=== PATIENT | female | born 1970 | race Caucasian/White ===

== ENCOUNTER 2018-10-30 12:43 | Emergency (ER) | payer MEDICAID, MEDICARE ==
[~2018-10-30] VITALS: Ht 162.6 cm; Wt 81.8 kg
[~2018-10-30 12:43] MED LIST: DIPH25 PO; LURA80 PO
[2018-10-30] MEDS ORDERED: VITA100T5 PO (14:00)
[2018-10-30] MEDS ORDERED: IBUP-2070 PO (14:00)
[2018-10-30] MEDS ORDERED: QUET300T2 PO (14:00)
[2018-10-30] MEDS ORDERED: ARIP2 IM (14:00)
[2018-10-30] MEDS ORDERED: DIVA250T45 PO (14:00)
[2018-10-30] MEDS ORDERED: CETI10TA59 PO (14:00)
[2018-10-30] MEDS ORDERED: VITAD1000 PO (14:00)
[2018-10-30 15:12] LABS: EOSINOPHILS % (AUTO) 1.4 % (1.0-6.0); HEMATOCRIT 42.5 % (36-46); HEMOGLOBIN 13.6 g/dL (12.0-16.0); LYMPHOCYTES % (AUTO) 21.5 % (22.0-44.0); MEAN CORPUSCULAR HEMOGLOBIN 29.3 pg (26.0-34.0); MEAN CORPUSCULAR HGB CONC 32.1 G/dL (31.0-37.0); MEAN CORPUSCULAR VOLUME 91 fL (80-100); MONOCYTES # (AUTO) 0.4 K/uL (0.1-1.0); MONOCYTES % (AUTO) 8.6 % (2.0-9.0); NEUTROPHILS # (AUTO) 3.2 K/uL (1.8-7.7); NEUTROPHILS % (AUTO) 67.5 % (40.0-70.0); PLATELET COUNT (AUTO) 199 K/uL (150-450); RED BLOOD CELL COUNT(AUTO) 4.64 MIL/uL (4.00-5.20); RED CELL DISTRIBUTION WIDTH 13.5 % (11.5-14.5)
[2018-10-30 15:19] LABS: CALCIUM, TOTAL 9.5 mg/dL (8.8-10.5); CREATININE 1.34 mg/dL (0.60-1.30); POTASSIUM 4.1 mmol/L (3.5-5.1)
[2018-10-30 15:44] LABS: ALBUMIN 3.1 g/dL (3.4-5.0); BILIRUBIN,TOTAL 0.5 mg/dL (0.1-1.0); TOTAL PROTEIN, SERUM 7.2 g/dL (6.4-8.2)
[2018-10-30 16:05] LABS: APPEARANCE,URINE CLOUDY (CLEAR); BILIRUBIN,URINE PRELIM. POSITIVE (NEGATIVE); GLUCOSE, URINE (UA) NEGATIVE (NEGATIVE); KETONES,URINE 40 mg/dL (NEGATIVE); LEUKOCYTE ESTERASE ,URINE NEGATIVE (NEGATIVE); NITRATE,URINE NEGATIVE (NEGATIVE); OCCULT BLOOD,URINE NEGATIVE (NEGATIVE); PROTEIN,URINE NEGATIVE (NEGATIVE)
[2018-10-30 16:08] LABS: AMPHET/METH SCREEN,URINE NEGATIVE (NEGATIVE); BARBITURATE SCREEN, URINE NEGATIVE (NEGATIVE); BENZODIAZEPINES SCREEN,URINE NEGATIVE (NEGATIVE); CANNABINOID SCREEN,URINE NEGATIVE (NEGATIVE); COCAINE SCREEN,URINE NEGATIVE (NEGATIVE); METHADONE SCREEN, URINE NEGATIVE (NEGATIVE); OPIATE SCREEN,URINE NEGATIVE (NEGATIVE)
[2018-10-30 16:28] LABS: PHENCYCLIDINE SCREEN,URINE NEGATIVE (NEGATIVE)
[2018-10-30 16:34] LABS: BACTERIA,URINE Few /HPF (None Seen); RBC,URINE None Seen /HPF (0-2); WBC,URINE 0-2 /HPF (0-5)
[2018-10-30 16:35] LABS: SQUAMOUS EPITHELIAL CELL,UR Many /LPF (None Seen)
[2018-10-30] MEDS ORDERED: SODIUM CHLORIDE 0.9% 100 ML ONE (16:36)
[2018-10-30] MEDS ORDERED: IOVERSOL 350 MG/ML 150 ML VIAL ONE (16:36)
[2018-10-30] MEDS ORDERED: AZITHROMYCIN 250 MG in SODIUM CHLORIDE 0.9% 150 ML IV ONE (21:15)
[2018-10-30] MEDS ORDERED: CefTRIAXone 1 GM/DEXTROSE 50 ML IV ONE (21:15)
[2018-10-30 21:30] VITALS: BP 140/80
== END 2018-10-30 21:30 | disposition home or self-care (01) ==
LOC: EMS 12:44
DX: G24.01 Drug induced subacute dyskinesia (principal); R42 Dizziness and giddiness; T43.595A Adverse effect of other antipsychotics and neuroleptics, initial encounter; F31.9 Bipolar disorder, unspecified; E03.9 Hypothyroidism, unspecified; Z88.8 Allergy status to other drugs, medicaments and biological substances; Z79.899 Other long term (current) drug therapy; Y92.89 Other specified places as the place of occurrence of the external cause
CPT/HCPCS: 36415; 70496; 70498; 71045; 80053; 80307; 81001; 82550; 84484; 85025; 93005; 99285; J7050; Q9967; 51702; J0456

== ENCOUNTER 2021-03-15 18:58 | Emergency (ER) | payer MEDICARE, OTHER ==
[~2021-03-15] VITALS: Ht 162.6 cm; Wt 64.1 kg
[~2021-03-15 18:58] MED LIST changes: +ARIP2TAB27 IM; +CETI-450 PO; +CHOL100018 PO; -DIPH25 PO; +DIVA-85 PO; +IBUP-2070 PO; -LURA80 PO; +QUET300T2 PO; +VITA100T5 PO
[2021-03-15] MEDS ORDERED: DiphenhydrAMINE HCL 50 MG/ML VIAL IVP ONE (20:00)
[2021-03-15 22:00] VITALS: BP 132/85
== END 2021-03-15 22:05 | disposition home or self-care (01) ==
LOC: EMS 19:00
DX: G25.89 Other specified extrapyramidal and movement disorders (principal); E03.9 Hypothyroidism, unspecified; F31.9 Bipolar disorder, unspecified; Z79.899 Other long term (current) drug therapy; Z88.8 Allergy status to other drugs, medicaments and biological substances
CPT/HCPCS: 96374; 99283; J1200

== ENCOUNTER 2022-08-13 13:54 | Emergency (ER) | payer MEDICARE, OTHER ==
[~2022-08-13] VITALS: Ht 162.6 cm; Wt 56.8 kg
[~2022-08-13 13:54] MED LIST changes: +IBUP-1492 PO; -IBUP-2070 PO
[2022-08-13 14:58] LABS: BASOPHILS % (AUTO) 0.9 % (0.0-2.0); EOSINOPHILS % (AUTO) 4.9 % (1.0-6.0); HEMATOCRIT 40.5 % (36-46); HEMOGLOBIN 13.3 g/dL (12.0-16.0); LYMPHOCYTES # (AUTO) 1.5 K/uL (1.0-4.8); LYMPHOCYTES % (AUTO) 44.3 % (22.0-44.0); MEAN CORPUSCULAR HEMOGLOBIN 28.3 pg (26.0-34.0); MEAN CORPUSCULAR HGB CONC 32.8 G/dL (31.0-37.0); MEAN CORPUSCULAR VOLUME 86 fL (80-100); MONOCYTES # (AUTO) 0.4 K/uL (0.1-1.0); MONOCYTES % (AUTO) 10.3 % (2.0-9.0); NEUTROPHILS # (AUTO) 1.4 K/uL (1.8-7.7); NEUTROPHILS % (AUTO) 39.6 % (40.0-70.0); PLATELET COUNT (AUTO) 278 K/uL (150-450); RED BLOOD CELL COUNT(AUTO) 4.69 MIL/uL (4.00-5.20); RED CELL DISTRIBUTION WIDTH 13.5 % (11.5-14.5)
[2022-08-13 15:20] LABS: ANION GAP 9 mmol/L (8-16); CARBON DIOXIDE 26 mmol/L (22-29); CHLORIDE 104 mmol/L (98-107); GLUCOSE,RANDOM 120 mg/dL (70-110); POTASSIUM 3.5 mmol/L (3.5-5.1); SODIUM SERUM 139 mmol/L (136-145); UREA NITROGEN, BLOOD 10 mg/dL (7-18)
[2022-08-13 15:21] LABS: CALCIUM, TOTAL 9.2 mg/dL (8.8-10.5); CREATININE 0.95 mg/dL (0.60-1.30); GLOMERULAR FILTR. RATE CALC > 60 mL/min (>60)
[2022-08-13 15:25] LABS: ALANINE AMINOTRANSFERASE 16 U/L (12-78); ALBUMIN 3.6 g/dL (3.4-5.0); ALKALINE PHOSPHATASE 75 U/L (46-116); ASPARTATE AMINOTRANSFERASE 15 U/L (15-37); BILIRUBIN,TOTAL 0.1 mg/dL (0.1-1.0); TOTAL PROTEIN, SERUM 7.1 g/dL (6.4-8.2)
[2022-08-13 15:26] LABS: AMPHET/METH SCREEN,URINE NEGATIVE (NEGATIVE); BARBITURATE SCREEN, URINE NEGATIVE (NEGATIVE); BENZODIAZEPINES SCREEN,URINE NEGATIVE (NEGATIVE); CANNABINOID SCREEN,URINE NEGATIVE (NEGATIVE); COCAINE SCREEN,URINE NEGATIVE (NEGATIVE); METHADONE SCREEN, URINE NEGATIVE (NEGATIVE); OPIATE SCREEN,URINE NEGATIVE (NEGATIVE); PHENCYCLIDINE SCREEN,URINE NEGATIVE (NEGATIVE)
[2022-08-13 16:13] VITALS: BP 138/94
== END 2022-08-13 16:22 | disposition home or self-care (01) ==
LOC: EMS 14:15
DX: G10 Huntington's disease (principal); F31.9 Bipolar disorder, unspecified
CPT/HCPCS: 99283; 80053; 84703; 85025; 36415; 80307 ×2; G0480

== ENCOUNTER 2023-09-25 11:33 | Inpatient (IN) | payer MEDICARE, MEDICAID ==
[~2023-09-25] VITALS: Ht 162.6 cm; Wt 70.0 kg
[2023-09-25] MEDS ORDERED: DiphenhydrAMINE HCL 50 MG/ML VIAL ONE (11:45)
[2023-09-25] MEDS ORDERED: LORazepam 2 MG/ML VIAL ONE (11:45)
[2023-09-25] MEDS ORDERED: HALOPERIDOL LACTATE 5 MG/ML VIAL ONE (11:45)
[2023-09-25] MEDS: DiphenhydrAMINE HCL 50 MG/ML VIAL IM ONE (11:49)
[2023-09-25] MEDS: LORazepam 2 MG/ML VIAL IM ONE (11:49)
[2023-09-25] MEDS: HALOPERIDOL LACTATE 5 MG/ML VIAL IM ONE (11:50)
[2023-09-25] MEDS ORDERED: RISP2TAB45 PO (11:57)
[2023-09-25] MEDS ORDERED: CLON0.252 PO (11:57)
[2023-09-25] MEDS ORDERED: DEUT9TAB PO (11:57)
[2023-09-25 12:17] LABS: ALCOHOL, URINE DRUG SCREEN NEGATIVE (NEGATIVE); AMPHET/METH SCREEN,URINE NEGATIVE (NEGATIVE); BARBITURATE SCREEN, URINE NEGATIVE (NEGATIVE); BENZODIAZEPINES SCREEN,URINE NEGATIVE (NEGATIVE); CANNABINOID SCREEN,URINE NEGATIVE (NEGATIVE); COCAINE SCREEN,URINE NEGATIVE (NEGATIVE); METHADONE SCREEN, URINE NEGATIVE (NEGATIVE); OPIATE SCREEN,URINE NEGATIVE (NEGATIVE); PHENCYCLIDINE SCREEN,URINE NEGATIVE (NEGATIVE)
[2023-09-25 12:33] LABS: PH,URINE DRUG SCREEN 5.5 (5.0-8.0)
[2023-09-25 13:21] LABS: BASOPHILS % (AUTO) 0.8 % (0.0-2.0); EOSINOPHILS % (AUTO) 0.7 % (1.0-6.0); HEMATOCRIT 39.3 % (36-46); HEMOGLOBIN 12.6 g/dL (12.0-16.0); LYMPHOCYTES # (AUTO) 0.8 K/uL (1.0-4.8); LYMPHOCYTES % (AUTO) 18.4 % (22.0-44.0); MEAN CORPUSCULAR HEMOGLOBIN 27.4 pg (26.0-34.0); MEAN CORPUSCULAR HGB CONC 32.2 G/dL (31.0-37.0); MEAN CORPUSCULAR VOLUME 85 fL (80-100); MONOCYTES # (AUTO) 0.4 K/uL (0.1-1.0); NEUTROPHILS # (AUTO) 3.2 K/uL (1.8-7.7); NEUTROPHILS % (AUTO) 72.1 % (40.0-70.0); PLATELET COUNT (AUTO) 326 K/uL (150-450); RED BLOOD CELL COUNT(AUTO) 4.62 MIL/uL (4.00-5.20); RED CELL DISTRIBUTION WIDTH 14.3 % (11.5-14.5); WHITE BLOOD COUNT (AUTO) 4.4 K/uL (4.5-11.0)
[2023-09-25 13:30] LABS: ANION GAP 9 mmol/L (8-16); CALCIUM, TOTAL 9.3 mg/dL (8.8-10.5); CARBON DIOXIDE 28 mmol/L (22-29); CHLORIDE 104 mmol/L (98-107); CREATININE 0.83 mg/dL (0.60-1.30); GLOMERULAR FILTR. RATE CALC > 60 mL/min (>60); GLUCOSE,RANDOM 103 mg/dL (70-110); POTASSIUM 3.5 mmol/L (3.5-5.1); SODIUM SERUM 140 mmol/L (136-145); UREA NITROGEN, BLOOD 7 mg/dL (7-18)
[2023-09-25 13:42] LABS: ALCOHOL, BLOOD (SERUM) < 3 mg/dL (0-10)
[2023-09-25 13:52] LABS: COVID AG,FIA SOURCE NASAL SWAB
[2023-09-25 14:11] LABS: SARS-COV2 (COVID) ANTIGEN,FIA Negative (Negative)
[2023-09-25 21:24] VITALS: BP 130/76; PULSE 78; RESP 18; TEMP 98.9
[2023-09-26 08:07] LABS: FREE T4 (FREE THYROXINE) 0.85 ng/dL (0.76-1.46); THYROID STIMULATING HORMONE 1.75 uIU/mL (0.36-3.74)
[2023-09-26] MEDS: QUEtiapine FUMARATE 200 MG TABLET PO SCH (10:13)
[2023-09-26 10:29] VITALS: BP 113/92; PULSE 76; RESP 18; TEMP 98.6
[2023-09-26] MEDS ORDERED: DEUT9TAB PO (11:03)
[2023-09-26] MEDS ORDERED: CloNIDine HCL 0.1 MG TABLET PO PRN (12:15)
[2023-09-26] MEDS ORDERED: PETROLATUM,WHITE 28 GM JELLY TP PRN (12:15)
[2023-09-26] MEDS ORDERED: ONDANSETRON HCL 4 MG TABLET PO PRN (12:15)
[2023-09-26] MEDS ORDERED: MAGNESIUM HYDROXIDE SUSPENSION 30 ML UDCUP PO PRN (12:15)
[2023-09-26] MEDS ORDERED: DOCUSATE SODIUM 100 MG CAPSULE PO PRN (12:15)
[2023-09-26] MEDS ORDERED: NICOTINE 14 MG/24 HOUR PATCH TD PRN (12:15)
[2023-09-26] MEDS ORDERED: GuaiFENesin/D-METHORPHAN [SUGAR-FREE] 200-20MG/10 ML SYRUP UDCUP PO PRN (12:15)
[2023-09-26] MEDS ORDERED: ALBUTEROL SULFATE HFA 90 MCG/PUFF 8 GM INHALER IH PRN (12:15)
[2023-09-26] MEDS ORDERED: LOPERAMIDE HCL 2 MG CAPSULE PO PRN (12:15)
[2023-09-26] MEDS ORDERED: IBUPROFEN 400 MG TABLET PO PRN (12:15)
[2023-09-26] MEDS ORDERED: MAG HYDROX/ALUMINUM HYD/SIMETH ES 30 ML SUSPENSION UDCUP PO PRN (12:15)
[2023-09-26] MEDS ORDERED: ACETAMINOPHEN 325 MG TABLET PO PRN (12:15)
[2023-09-26 20:05] VITALS: BP 124/74; PULSE 81; RESP 18; TEMP 97.6
[2023-09-27 09:30] LABS: HEMOGLOBIN A1C 5.6 % (3.8-5.6)
[2023-09-27 09:39] LABS: CHOL/HDL RATIO 2.1 (3.9-5.7); FREE T4 (FREE THYROXINE) 0.83 ng/dL (0.76-1.46); THYROID STIMULATING HORMONE 0.73 uIU/mL (0.36-3.74)
[2023-09-27 10:30] VITALS: BP 132/82; PULSE 97; RESP 17; TEMP 97
[2023-09-27 20:41] VITALS: RESP 16
[2023-09-27] MEDS: ZOLPIDEM TARTRATE 10 MG TABLET PO PRN (23:39)
[2023-09-27] MEDS: LORazepam 2 MG TABLET PO PRN (23:59)
[2023-09-28 15:20] VITALS: BP 116/77; PULSE 91; RESP 18; TEMP 96.9
[2023-09-28 15:55] VITALS: BP 116/77; PULSE 91; RESP 18; TEMP 96.9; O2SAT 97
[2023-09-28 16:00] VITALS: BP 129/76; PULSE 99; RESP 20
[2023-09-28] MEDS: HALOPERIDOL 5 MG TABLET PO PRN (16:38)
[2023-09-28 22:18] VITALS: BP 117/70; PULSE 75; RESP 18; TEMP 98; O2SAT 96
[2023-09-29 08:22] VITALS: BP 127/85; PULSE 96; RESP 16; TEMP 97.5; O2SAT 99
[2023-09-29 23:59] VITALS: BP 114/80; PULSE 78; RESP 16; TEMP 97.7; O2SAT 98
[2023-09-30 09:18] VITALS: BP 126/87; PULSE 96; RESP 18; TEMP 96.8; O2SAT 100
== END 2023-09-30 19:07 | DRG 885 ==
LOC: EMS 11:33 → B3A 16:23
PROVIDERS: ADMIT Psychiatry & Neurology Child & Adolescent Psychiatry; ATTEND Psychiatry & Neurology Child & Adolescent Psychiatry
PROC: GZHZZZZ Group Psychotherapy (ICD-10-PCS; principal; 2023-09-26)
PROC: GZ52ZZZ Individual Psychotherapy, Cognitive (ICD-10-PCS; 2023-09-29)
DX: F31.64 Bipolar disorder, current episode mixed, severe, with psychotic features (principal); G10 Huntington's disease; G47.00 Insomnia, unspecified; Z20.822 Contact with and (suspected) exposure to COVID-19; F41.9 Anxiety disorder, unspecified; D72.819 Decreased white blood cell count, unspecified; E73.9 Lactose intolerance, unspecified; G20.A1 Parkinson's disease without dyskinesia, without mention of fluctuations; Z79.899 Other long term (current) drug therapy
CPT/HCPCS: 80048; 80061; 80307; 83036; 84439; 84443; 84703; 85025; 87081; 87481; G0480; J1200; J1630; J2060

== ENCOUNTER 2023-12-14 22:42 | Inpatient (IN) | payer MEDICARE, MEDICAID ==
[~2023-12-14] VITALS: Ht 157.5 cm; Wt 69.9 kg
[2023-12-15] MEDS: DiphenhydrAMINE HCL 50 MG/ML VIAL IM ONE ×2 (00:05→05:08)
[2023-12-15] MEDS: LORazepam 2 MG/ML VIAL IM ONE ×2 (00:06→05:08)
[2023-12-15] MEDS: HALOPERIDOL LACTATE 5 MG/ML VIAL IM ONE ×2 (00:06→05:09)
[2023-12-15 00:20] LABS: EOSINOPHILS % (AUTO) 1.6 % (1.0-6.0); HEMATOCRIT 39.1 % (36-46); HEMOGLOBIN 12.6 g/dL (12.0-16.0); LYMPHOCYTES # (AUTO) 1.4 K/uL (1.0-4.8); LYMPHOCYTES % (AUTO) 28.2 % (22.0-44.0); MEAN CORPUSCULAR HEMOGLOBIN 27.5 pg (26.0-34.0); MEAN CORPUSCULAR HGB CONC 32.1 G/dL (31.0-37.0); MEAN CORPUSCULAR VOLUME 86 fL (80-100); MONOCYTES # (AUTO) 0.6 K/uL (0.1-1.0); MONOCYTES % (AUTO) 11.1 % (2.0-9.0); NEUTROPHILS # (AUTO) 2.9 K/uL (1.8-7.7); NEUTROPHILS % (AUTO) 58.1 % (40.0-70.0); PLATELET COUNT (AUTO) 358 K/uL (150-450); RED BLOOD CELL COUNT(AUTO) 4.57 MIL/uL (4.00-5.20); RED CELL DISTRIBUTION WIDTH 14.1 % (11.5-14.5); WHITE BLOOD COUNT (AUTO) 5.1 K/uL (4.5-11.0)
[2023-12-15 00:31] LABS: ANION GAP 6 mmol/L (8-16); CARBON DIOXIDE 31 mmol/L (22-29); CHLORIDE 103 mmol/L (98-107); CREATININE 0.91 mg/dL (0.60-1.30); GLOMERULAR FILTR. RATE CALC > 60 mL/min (>60); GLUCOSE,RANDOM 99 mg/dL (70-110); POTASSIUM 4.6 mmol/L (3.5-5.1); SODIUM SERUM 140 mmol/L (136-145); UREA NITROGEN, BLOOD 15 mg/dL (7-18)
[2023-12-15 00:41] LABS: ALCOHOL, BLOOD (SERUM) < 3 mg/dL (0-10)
[2023-12-15 00:41] LABS: COVID AG,FIA SOURCE NASAL SWAB
[2023-12-15 01:01] LABS: SARS-COV2 (COVID) ANTIGEN,FIA Negative (Negative)
[2023-12-15] MEDS ORDERED: HALOPERIDOL 5 MG TABLET PO PRN (01:45)
[2023-12-15 06:30] VITALS: O2SAT 99
[2023-12-15 07:35] VITALS: BP 129/85; PULSE 63; RESP 18; TEMP 98.2; O2SAT 99
[2023-12-15 08:00] VITALS: BP 129/85; PULSE 63; RESP 18; TEMP 98.2; O2SAT 99
[2023-12-15] MEDS ORDERED: QUET-28 PO (09:43)
[2023-12-15] MEDS ORDERED: RISP1TAB48 PO (09:43)
[2023-12-15] MEDS: RisperiDONE 1 MG TABLET PO SCH (09:45)
[2023-12-15] MEDS ORDERED: IBUPROFEN 400 MG TABLET PO PRN (15:15)
[2023-12-15] MEDS ORDERED: GuaiFENesin/D-METHORPHAN [SUGAR-FREE] 200-20MG/10 ML SYRUP UDCUP PO PRN (15:15)
[2023-12-15] MEDS ORDERED: CloNIDine HCL 0.1 MG TABLET PO PRN (15:15)
[2023-12-15] MEDS ORDERED: MAGNESIUM HYDROXIDE SUSPENSION 30 ML UDCUP PO PRN (15:15)
[2023-12-15] MEDS ORDERED: MAG HYDROX/ALUMINUM HYD/SIMETH ES 30 ML SUSPENSION UDCUP PO PRN (15:15)
[2023-12-15] MEDS ORDERED: LOPERAMIDE HCL 2 MG CAPSULE PO PRN (15:15)
[2023-12-15] MEDS ORDERED: PETROLATUM,WHITE 28 GM JELLY TP PRN (15:15)
[2023-12-15] MEDS ORDERED: NICOTINE 14 MG/24 HOUR PATCH TD PRN (15:15)
[2023-12-15] MEDS ORDERED: ACETAMINOPHEN 325 MG TABLET PO PRN (15:15)
[2023-12-15] MEDS ORDERED: ONDANSETRON 4 MG TABLET PO PRN (15:15)
[2023-12-15] MEDS ORDERED: ALBUTEROL SULFATE HFA 90 MCG/PUFF 8 GM INHALER IH PRN (15:15)
[2023-12-15] MEDS ORDERED: DOCUSATE SODIUM 100 MG CAPSULE PO PRN (15:15)
[2023-12-15 20:00] VITALS: RESP 16
[2023-12-15] MEDS: QUEtiapine FUMARATE 200 MG ER TABLET PO SCH (20:14)
[2023-12-16 08:26] VITALS: BP 108/71; PULSE 84; RESP 18; TEMP 97.5; O2SAT 98
[2023-12-16 08:39] LABS: HEMOGLOBIN A1C 5.8 % (3.8-5.6)
[2023-12-16 09:15] LABS: CHOL/HDL RATIO 2.2 (3.9-5.7); THYROID STIMULATING HORMONE 1.09 uIU/mL (0.36-3.74)
[2023-12-16] MEDS: ZOLPIDEM TARTRATE 10 MG TABLET PO PRN (21:03)
[2023-12-16 21:05] VITALS: BP 108/65; PULSE 82; RESP 18; TEMP 97; O2SAT 97
[2023-12-17 08:30] VITALS: BP 108/67; PULSE 73; RESP 17; TEMP 97.1; O2SAT 97
[2023-12-17] MEDS: LORazepam 2 MG TABLET PO PRN (16:42)
[2023-12-17 20:31] VITALS: BP 111/73; PULSE 98; RESP 16; TEMP 98.4; O2SAT 98
[2023-12-18 08:31] VITALS: BP 120/60; PULSE 74; RESP 16; TEMP 97.6; O2SAT 96
[2023-12-18 21:30] VITALS: BP 114/78; PULSE 82; RESP 16; TEMP 98; O2SAT 95
[2023-12-19] MEDS: BACITRACIN 28 GM OINTMENT TP SCH (08:44)
[2023-12-19 09:48] VITALS: BP 119/78; PULSE 100; RESP 17; TEMP 98; O2SAT 98
[2023-12-19] MEDS ORDERED: QUET200T5 PO (10:26)
== END 2023-12-19 13:15 | DRG 885 ==
LOC: EMS 22:42 → B3A 12-15 07:11
PROVIDERS: ADMIT Psychiatry & Neurology Psychiatry; ATTEND Psychiatry & Neurology Psychiatry
PROC: GZHZZZZ Group Psychotherapy (ICD-10-PCS; principal; 2023-12-15)
DX: F31.64 Bipolar disorder, current episode mixed, severe, with psychotic features (principal); G10 Huntington's disease; R45.851 Suicidal ideations; F29 Unspecified psychosis not due to a substance or known physiological condition; G20.A1 Parkinson's disease without dyskinesia, without mention of fluctuations; E73.9 Lactose intolerance, unspecified; Z20.822 Contact with and (suspected) exposure to COVID-19; F41.9 Anxiety disorder, unspecified; G47.00 Insomnia, unspecified; Z79.899 Other long term (current) drug therapy
CPT/HCPCS: 80048; 80061; 83036; 84443; 85025; 87081; 87481; 99285; G0480; J1200; J1630; J2060

== ENCOUNTER 2023-12-28 20:52 | Inpatient (IN) | payer MEDICARE, MEDICAID ==
[~2023-12-28] VITALS: Ht 160 cm; Wt 57.3 kg
[~2023-12-28 20:52] MED LIST changes: -ARIP2TAB27 IM; -CETI-450 PO; -CHOL100018 PO; -DIVA-85 PO; -IBUP-1492 PO; +QUET200T5 PO; -QUET300T2 PO; +RISP1TAB48 PO; -VITA100T5 PO
[2023-12-28 22:10] LABS: BASOPHILS % (AUTO) 1.2 % (0.0-2.0); EOSINOPHILS % (AUTO) 3.4 % (1.0-6.0); HEMATOCRIT 40.8 % (36-46); LYMPHOCYTES # (AUTO) 1.7 K/uL (1.0-4.8); MEAN CORPUSCULAR HEMOGLOBIN 27.3 pg (26.0-34.0); MEAN CORPUSCULAR HGB CONC 31.9 G/dL (31.0-37.0); MEAN CORPUSCULAR VOLUME 86 fL (80-100); MONOCYTES # (AUTO) 0.6 K/uL (0.1-1.0); MONOCYTES % (AUTO) 11.5 % (2.0-9.0); NEUTROPHILS # (AUTO) 2.6 K/uL (1.8-7.7); NEUTROPHILS % (AUTO) 50.9 % (40.0-70.0); PLATELET COUNT (AUTO) 340 K/uL (150-450); RED BLOOD CELL COUNT(AUTO) 4.77 MIL/uL (4.00-5.20); RED CELL DISTRIBUTION WIDTH 14.3 % (11.5-14.5); WHITE BLOOD COUNT (AUTO) 5.1 K/uL (4.5-11.0)
[2023-12-28 22:20] LABS: ANION GAP 8 mmol/L (8-16); CALCIUM, TOTAL 9.1 mg/dL (8.8-10.5); CARBON DIOXIDE 27 mmol/L (22-29); CHLORIDE 105 mmol/L (98-107); CREATININE 0.97 mg/dL (0.60-1.30); GLOMERULAR FILTR. RATE CALC 60 mL/min (>60); GLUCOSE,RANDOM 90 mg/dL (70-110); POTASSIUM 3.7 mmol/L (3.5-5.1); SODIUM SERUM 140 mmol/L (136-145); UREA NITROGEN, BLOOD 12 mg/dL (7-18)
[2023-12-28 22:21] LABS: ALCOHOL, BLOOD (SERUM) < 3 mg/dL (0-10)
[2023-12-28 23:34] LABS: COVID AG,FIA SOURCE NASAL SWAB
[2023-12-28 23:56] LABS: SARS-COV2 (COVID) ANTIGEN,FIA Negative (Negative)
[2023-12-29] MEDS ORDERED: LOPERAMIDE HCL 2 MG CAPSULE PO PRN (10:45)
[2023-12-29] MEDS ORDERED: MAGNESIUM HYDROXIDE SUSPENSION 30 ML UDCUP PO PRN (10:45)
[2023-12-29] MEDS ORDERED: MAG HYDROX/ALUMINUM HYD/SIMETH ES 30 ML SUSPENSION UDCUP PO PRN (10:45)
[2023-12-29] MEDS: HALOPERIDOL LACTATE 5 MG/ML VIAL IM ONE (18:10)
[2023-12-29] MEDS: DiphenhydrAMINE HCL 50 MG/ML VIAL IM ONE (18:10)
[2023-12-29] MEDS: LORazepam 2 MG/ML VIAL IM ONE (18:10)
[2023-12-29 18:57] VITALS: RESP 18
[2023-12-29 20:43] VITALS: BP 137/93; PULSE 100; RESP 18; TEMP 97.3; O2SAT 98
[2023-12-29] MEDS: ZOLPIDEM TARTRATE 10 MG TABLET PO PRN (21:48)
[2023-12-30] MEDS: HALOPERIDOL 5 MG TABLET PO PRN (00:32)
[2023-12-30] MEDS: LORazepam 2 MG TABLET PO PRN (00:32)
[2023-12-30 00:33] VITALS: BP 113/83; PULSE 91; RESP 18; TEMP 97.5; O2SAT 98
[2023-12-30 08:00] VITALS: BP 154/82; PULSE 83; RESP 18; TEMP 96.6; O2SAT 97
[2023-12-30 14:30] VITALS: BP 123/68; PULSE 73
[2023-12-30] MEDS ORDERED: GuaiFENesin/D-METHORPHAN [SUGAR-FREE] 200-20MG/10 ML SYRUP UDCUP PO PRN (16:00)
[2023-12-30] MEDS ORDERED: PETROLATUM,WHITE 28 GM JELLY TP PRN (16:00)
[2023-12-30] MEDS ORDERED: NICOTINE 14 MG/24 HOUR PATCH TD PRN (16:00)
[2023-12-30] MEDS ORDERED: ACETAMINOPHEN 325 MG TABLET PO PRN (16:00)
[2023-12-30] MEDS ORDERED: ALBUTEROL SULFATE HFA 90 MCG/PUFF 8 GM INHALER IH PRN (16:00)
[2023-12-30] MEDS ORDERED: CloNIDine HCL 0.1 MG TABLET PO PRN (16:00)
[2023-12-30] MEDS: RisperiDONE 1 MG TABLET PO SCH (16:20)
[2023-12-30] MEDS: QUEtiapine FUMARATE 200 MG ER TABLET PO SCH (20:34)
[2023-12-31 10:40] VITALS: BP 105/73; PULSE 84; RESP 18; TEMP 97.6; O2SAT 97
[2023-12-31 20:26] VITALS: BP 122/80; PULSE 72; RESP 18; TEMP 97.6; O2SAT 97
[2024-01-01 08:52] VITALS: BP 105/64; PULSE 88; RESP 17; TEMP 97.1; O2SAT 99
[2024-01-01 21:28] VITALS: BP 105/69; PULSE 79; RESP 16; TEMP 96.9; O2SAT 95
[2024-01-02 01:04] VITALS: BP 112/68; PULSE 86; RESP 16; TEMP 97.8; O2SAT 97
[2024-01-02] MEDS: IBUPROFEN 400 MG TABLET PO PRN (01:04)
[2024-01-02 08:31] VITALS: BP 132/79; PULSE 103; RESP 16; TEMP 96.9; O2SAT 96
[2024-01-02 20:00] VITALS: BP 148/86; PULSE 99; RESP 18; TEMP 96.7; O2SAT 99
[2024-01-03 09:14] LABS: HEMOGLOBIN A1C 5.7 % (3.8-5.6)
[2024-01-03 09:25] LABS: CHOL/HDL RATIO 1.8 (3.9-5.7); THYROID STIMULATING HORMONE 1.68 uIU/mL (0.36-3.74)
[2024-01-03 10:40] VITALS: BP 118/78; PULSE 94; RESP 17; TEMP 97.4; O2SAT 96
[2024-01-03 20:48] VITALS: BP 132/79; PULSE 98; RESP 17; TEMP 97.9; O2SAT 96
[2024-01-04 09:44] VITALS: RESP 17
[2024-01-04 20:21] VITALS: BP 148/97; PULSE 71; RESP 17; TEMP 97.8; O2SAT 97
[2024-01-05 08:40] VITALS: BP 101/62; PULSE 73; TEMP 98.1; O2SAT 16
[2024-01-05 21:12] VITALS: BP 138/78; PULSE 97; RESP 18; TEMP 97.8; O2SAT 100
[2024-01-06 16:40] VITALS: BP 135/90; PULSE 82; RESP 18; TEMP 97.4; O2SAT 96
[2024-01-06 20:16] VITALS: BP 105/75; PULSE 91; RESP 18; TEMP 96; O2SAT 98
[2024-01-07 09:04] VITALS: BP 128/96; PULSE 87; RESP 16; TEMP 97
[2024-01-07 20:41] VITALS: BP 118/81; PULSE 94; RESP 15; TEMP 97; O2SAT 97
[2024-01-08 09:44] VITALS: BP 127/91; PULSE 77; RESP 17; TEMP 97.7; O2SAT 97
[2024-01-08 21:01] VITALS: RESP 17
[2024-01-09 01:04] VITALS: BP 122/82; PULSE 85; RESP 18; TEMP 97.6; O2SAT 97
[2024-01-09 08:17] VITALS: BP 103/75; PULSE 88; RESP 18; TEMP 97; O2SAT 98
[2024-01-09 20:00] VITALS: BP 138/80; PULSE 95; RESP 16; TEMP 97.6; O2SAT 98
[2024-01-10 08:09] VITALS: BP 136/71; PULSE 87; RESP 17; TEMP 97.4; O2SAT 96
[2024-01-10 17:43] VITALS: BP 144/90; PULSE 100; RESP 18; TEMP 97.8; O2SAT 95
[2024-01-10 23:56] VITALS: BP 118/76; PULSE 93; RESP 17; TEMP 97.3; O2SAT 97
[2024-01-11 13:16] VITALS: BP 110/76; PULSE 90; RESP 16; TEMP 97.8; O2SAT 98
[2024-01-11 23:44] VITALS: BP 117/78; PULSE 87; RESP 18; TEMP 97.6; O2SAT 98
[2024-01-12] MEDS: MAG HYDROX/ALUMINUM HYD/SIMETH ES 30 ML SUSPENSION UDCUP PO PRN (06:03)
[2024-01-12 08:00] VITALS: BP 127/64; PULSE 94; RESP 16; TEMP 98; O2SAT 96
[2024-01-12 20:46] VITALS: BP 117/72; PULSE 86; RESP 18; TEMP 96.5; O2SAT 98
[2024-01-13 09:02] VITALS: BP 113/71; PULSE 75; RESP 18; TEMP 98; O2SAT 97
[2024-01-13 10:00] VITALS: BP 115/73; PULSE 75; RESP 17; TEMP 97; O2SAT 97
[2024-01-13 20:03] VITALS: BP 105/78; PULSE 102; RESP 18; TEMP 97.3; O2SAT 95
[2024-01-14 09:14] VITALS: BP 98/59; PULSE 81; RESP 13; TEMP 97.6; O2SAT 97
[2024-01-14 21:51] VITALS: BP 101/63; PULSE 98; RESP 18; TEMP 97.3; O2SAT 97
[2024-01-15 11:30] VITALS: BP 116/74; PULSE 90; RESP 16; TEMP 97.8; O2SAT 98
[2024-01-15 21:08] VITALS: BP 106/68; PULSE 80; RESP 16; TEMP 96.3; O2SAT 95
[2024-01-16 08:02] VITALS: BP 110/72; PULSE 85; RESP 16; TEMP 97; O2SAT 97
[2024-01-16] MEDS: DiphenhydrAMINE HCL 50 MG/ML VIAL IM ONE (20:20)
[2024-01-16] MEDS: HALOPERIDOL LACTATE 5 MG/ML VIAL IM ONE (20:20)
[2024-01-16] MEDS: LORazepam 2 MG/ML VIAL IM ONE (20:20)
[2024-01-16 20:39] VITALS: BP 128/77; PULSE 92; RESP 18; TEMP 97.3; O2SAT 97
[2024-01-17 17:23] VITALS: RESP 18
[2024-01-17] MEDS: QUEtiapine FUMARATE 300 MG ER TABLET PO SCH (20:23)
[2024-01-17 20:30] VITALS: BP 111/74; PULSE 89; RESP 18; TEMP 97.4; O2SAT 97
[2024-01-18 08:27] VITALS: BP 125/79; PULSE 65; RESP 18; TEMP 97.9; O2SAT 100
[2024-01-18] MEDS: DOCUSATE SODIUM 100 MG CAPSULE PO PRN (18:54)
[2024-01-18 23:20] VITALS: RESP 18; O2SAT 99
[2024-01-19 08:07] VITALS: BP 99/63; PULSE 67; RESP 16; TEMP 98.1; O2SAT 99
[2024-01-19 20:00] VITALS: BP 110/60; PULSE 81; RESP 18; TEMP 97.6; O2SAT 98
[2024-01-20 09:42] VITALS: BP 116/61; PULSE 63; RESP 17; TEMP 98; O2SAT 97
[2024-01-20] MEDS: ROPINIRole HCL 0.25 MG TABLET PO SCH (15:38)
[2024-01-20 20:33] VITALS: BP 134/88; PULSE 89; RESP 18; TEMP 97.8; O2SAT 98
[2024-01-21 08:26] VITALS: BP 129/66; PULSE 87; RESP 18; TEMP 98; O2SAT 100
[2024-01-21 22:17] VITALS: BP 97/59; PULSE 81; RESP 18; TEMP 97; O2SAT 98
[2024-01-22 08:47] VITALS: BP 124/85; PULSE 99; RESP 17; TEMP 97.3; O2SAT 97
[2024-01-22 20:11] VITALS: BP 116/75; PULSE 83; RESP 18; TEMP 97.6; O2SAT 99
[2024-01-23 10:13] VITALS: BP 123/72; PULSE 80; RESP 16; TEMP 97.6; O2SAT 99
[2024-01-23 20:09] VITALS: BP 100/77; PULSE 86; RESP 18; TEMP 97.4; O2SAT 97
[2024-01-24 08:49] VITALS: BP 110/75; PULSE 83; RESP 18; O2SAT 98
[2024-01-24 20:17] VITALS: BP 112/83; PULSE 78; RESP 16; TEMP 97.6; O2SAT 97
[2024-01-25 08:06] VITALS: BP 121/86; PULSE 89; RESP 18; TEMP 97.7; O2SAT 97
[2024-01-25 20:16] VITALS: BP 110/76; PULSE 73; RESP 19; TEMP 98.1; O2SAT 95
[2024-01-26 09:05] VITALS: BP 117/76; PULSE 76; RESP 18; TEMP 96.6; O2SAT 99
[2024-01-26 20:07] VITALS: BP 135/85; PULSE 86; RESP 18; TEMP 97.5; O2SAT 98
[2024-01-27 08:34] VITALS: BP 126/71; PULSE 88; RESP 18; TEMP 96.8; O2SAT 96
[2024-01-27 22:07] VITALS: BP 112/77; PULSE 71; RESP 18; TEMP 97; O2SAT 96
[2024-01-28 08:23] VITALS: BP 104/70; PULSE 86; RESP 17; TEMP 97.2; O2SAT 97
[2024-01-28] MEDS: MAGNESIUM HYDROXIDE SUSPENSION 30 ML UDCUP PO PRN (12:07)
[2024-01-28 21:07] VITALS: BP 112/60; PULSE 81; RESP 17; TEMP 97.8; O2SAT 96
[2024-01-29 08:15] VITALS: BP 132/77; PULSE 77; RESP 17; TEMP 97.2; O2SAT 97
[2024-01-29 21:47] VITALS: BP 112/77; PULSE 73; RESP 18; TEMP 98.2; O2SAT 98
[2024-01-30 08:15] VITALS: BP 125/83; PULSE 100; RESP 16; TEMP 97.6; O2SAT 96
[2024-01-30 20:39] VITALS: BP 118/67; PULSE 84; RESP 16; TEMP 98.2; O2SAT 98
[2024-01-31 11:06] VITALS: BP 128/72; PULSE 77; RESP 16; TEMP 97.6; O2SAT 99
[2024-01-31 20:25] VITALS: BP 108/70; PULSE 63; RESP 16; TEMP 97.9; O2SAT 96
[2024-02-01 08:25] VITALS: BP 142/92; PULSE 89; RESP 17; TEMP 97.8; O2SAT 97
[2024-02-01 20:55] VITALS: BP 115/70; PULSE 86; RESP 17; TEMP 97.6; O2SAT 100
[2024-02-01 21:31] LABS: GLUCOMETER DEV NAME(LOC) BV2X.3; GLUCOSE,POINT OF CARE 93 MG/DL (70-110)
[2024-02-02 08:14] VITALS: BP 128/96; PULSE 62; RESP 19; TEMP 97.6; O2SAT 95
[2024-02-02 20:35] VITALS: BP 108/64; PULSE 93; RESP 18; TEMP 98.3; O2SAT 98
[2024-02-03 02:23] VITALS: BP 107/75; PULSE 73; TEMP 97.8; O2SAT 100
[2024-02-03 08:00] VITALS: BP 117/78; PULSE 95; RESP 17; TEMP 98.5; O2SAT 95
[2024-02-03] MEDS ORDERED: ChlorproMAZINE HCL 50 MG/2 ML AMP ONE (11:18)
[2024-02-03] MEDS ORDERED: LORazepam 2 MG/ML VIAL ONE (11:18)
[2024-02-03] MEDS: ChlorproMAZINE HCL 50 MG/2 ML AMP IM ONE (13:40)
[2024-02-03] MEDS: LORazepam 2 MG/ML VIAL IM ONE (13:40)
[2024-02-03 20:42] VITALS: BP 133/76; PULSE 83; RESP 20; TEMP 96.2; O2SAT 98
[2024-02-04 08:30] VITALS: BP 126/72; PULSE 99; RESP 20; TEMP 97.7; O2SAT 98
[2024-02-04 23:44] VITALS: RESP 18
[2024-02-05 08:16] VITALS: BP 104/66; PULSE 78; RESP 16; TEMP 97; O2SAT 97
[2024-02-05] MEDS ORDERED: LORazepam 2 MG/ML VIAL ONE (20:16)
[2024-02-05] MEDS: HALOPERIDOL LACTATE 5 MG/ML VIAL IM ONE (20:30)
[2024-02-05] MEDS: LORazepam 2 MG/ML VIAL IM ONE (20:31)
[2024-02-05] MEDS: DiphenhydrAMINE HCL 50 MG/ML VIAL IM ONE (20:31)
[2024-02-05 20:35] VITALS: RESP 18
[2024-02-06 12:36] VITALS: BP 129/86; PULSE 98; RESP 18; TEMP 97.3; O2SAT 97
[2024-02-06 20:54] VITALS: BP 102/66; PULSE 80; RESP 17; TEMP 97; O2SAT 99
[2024-02-07 09:00] VITALS: BP 124/73; PULSE 76; RESP 16; TEMP 97; O2SAT 99
[2024-02-07 14:25] VITALS: RESP 17
[2024-02-07] MEDS: ACETAMINOPHEN 325 MG TABLET PO PRN (14:25)
[2024-02-07 15:25] VITALS: RESP 16
[2024-02-07] MEDS: BACITRACIN 28 GM OINTMENT TP SCH (16:55)
[2024-02-07 20:16] VITALS: BP 111/77; PULSE 108; RESP 17; TEMP 97
[2024-02-07] MEDS: ONDANSETRON 4 MG TABLET PO PRN (20:19)
[2024-02-08 08:29] VITALS: BP 127/88; PULSE 98; RESP 18; TEMP 97.7; O2SAT 99
[2024-02-09 08:17] VITALS: BP 111/87; PULSE 85; RESP 17; TEMP 98.2; O2SAT 97
[2024-02-09 20:23] VITALS: BP 105/66; PULSE 76; RESP 18; TEMP 97.5; O2SAT 96
[2024-02-10] MEDS: HALOPERIDOL LACTATE 5 MG/ML VIAL IM ONE (05:07)
[2024-02-10] MEDS: DiphenhydrAMINE HCL 50 MG/ML VIAL IM ONE (05:08)
[2024-02-10] MEDS: LORazepam 2 MG/ML VIAL IM ONE (05:08)
[2024-02-10 06:46] VITALS: BP 112/79; PULSE 106; RESP 16; TEMP 97.5; O2SAT 100
[2024-02-10 08:15] VITALS: BP 120/85; PULSE 99; RESP 18; TEMP 97.1; O2SAT 97
[2024-02-10 22:05] VITALS: BP 111/60; PULSE 78; RESP 18; TEMP 97.6; O2SAT 98
[2024-02-11 08:21] VITALS: BP 127/81; PULSE 89; RESP 18; TEMP 97.9; O2SAT 100
[2024-02-11 20:39] VITALS: BP 127/81; PULSE 89; RESP 18; TEMP 97.5; O2SAT 100
[2024-02-12 09:05] VITALS: BP 110/67; PULSE 99; RESP 18; TEMP 97.1; O2SAT 100
[2024-02-12 22:13] VITALS: RESP 18
[2024-02-13 09:37] VITALS: BP 121/60; PULSE 90; RESP 18; TEMP 97.9; O2SAT 98
[2024-02-13 21:00] VITALS: RESP 18
[2024-02-14 20:25] VITALS: PULSE 84; RESP 18; TEMP 98
[2024-02-15 04:10] VITALS: RESP 18
[2024-02-15 05:15] VITALS: RESP 16
[2024-02-15 08:01] VITALS: BP 109/73; PULSE 76; RESP 17; TEMP 97.1; O2SAT 98
[2024-02-15 20:20] VITALS: BP 103/62; PULSE 83; RESP 18; TEMP 96.8; O2SAT 100
[2024-02-16 08:36] VITALS: BP 114/70; PULSE 69; RESP 17; TEMP 98.4; O2SAT 97
[2024-02-16 20:31] VITALS: BP 114/72; PULSE 80; RESP 18; TEMP 96.7; O2SAT 97
[2024-02-17 08:33] VITALS: BP 108/63; PULSE 80; RESP 18; TEMP 97.9; O2SAT 100
[2024-02-17 20:20] VITALS: BP 119/71; PULSE 101; RESP 18; TEMP 98; O2SAT 97
[2024-02-18 08:31] VITALS: BP 125/81; PULSE 83; RESP 18; TEMP 98.9; O2SAT 98
[2024-02-18 20:40] VITALS: RESP 18
[2024-02-19 08:26] VITALS: BP 122/82; PULSE 106; RESP 18; TEMP 97.4; O2SAT 98
[2024-02-19] MEDS: LOPERAMIDE HCL 2 MG CAPSULE PO PRN (16:00)
[2024-02-19 20:01] VITALS: BP 130/19; PULSE 95; RESP 18; TEMP 98; O2SAT 99
[2024-02-20 08:11] VITALS: BP 112/81; PULSE 87; RESP 18; TEMP 97.8; O2SAT 95
[2024-02-20 20:44] VITALS: BP 110/74; PULSE 88; RESP 18; TEMP 97.6
[2024-02-20 20:45] VITALS: BP 120/90; PULSE 88; RESP 18; TEMP 97.6; O2SAT 99
[2024-02-21 08:52] VITALS: RESP 18
[2024-02-21 20:52] VITALS: RESP 18; TEMP 97.6
[2024-02-22 17:36] VITALS: BP 105/62; PULSE 71; RESP 18; TEMP 98.4
[2024-02-22 20:06] VITALS: BP 108/66; PULSE 83; RESP 18; TEMP 97.6
[2024-02-23 08:01] VITALS: BP 100/61; PULSE 70; RESP 18; TEMP 97.3; O2SAT 98
[2024-02-23 20:10] VITALS: BP 134/66; PULSE 76; RESP 18; TEMP 97.3; TEMP 97.9; O2SAT 100; O2SAT 96
[2024-02-24 08:05] VITALS: BP 126/89; PULSE 77; RESP 18; TEMP 97.3; O2SAT 100
[2024-02-24] MEDS ORDERED: QUET300T5 PO (14:52)
[2024-02-24] MEDS ORDERED: ROPI0.2535 PO (14:53)
== END 2024-02-24 19:40 | DRG 885 ==
LOC: EMS 20:52 → B2X 12-29 16:03
PROVIDERS: ADMIT Psychiatry & Neurology Psychiatry; ATTEND Psychiatry & Neurology Psychiatry
PROC: GZHZZZZ Group Psychotherapy (ICD-10-PCS; principal; 2023-12-30)
PROC: GZ56ZZZ Individual Psychotherapy, Supportive (ICD-10-PCS; 2023-12-30)
DX: F31.64 Bipolar disorder, current episode mixed, severe, with psychotic features (principal); G10 Huntington's disease; Z59.00 Homelessness unspecified; G47.00 Insomnia, unspecified; Z20.822 Contact with and (suspected) exposure to COVID-19; I10 Essential (primary) hypertension; G20.A1 Parkinson's disease without dyskinesia, without mention of fluctuations; F41.9 Anxiety disorder, unspecified; F94.0 Selective mutism; R13.10 Dysphagia, unspecified; R40.0 Somnolence; Z88.8 Allergy status to other drugs, medicaments and biological substances; S00.81XA Abrasion of other part of head, initial encounter; X58.XXXA Exposure to other specified factors, initial encounter; Y93.89 Activity, other specified; Y92.89 Other specified places as the place of occurrence of the external cause; Y99.8 Other external cause status
CPT/HCPCS: 80048; 80061; 82962; 83036; 84443; 84703; 85025; 87081; 87481; 92610; 97165; 97535; 99285; G0480; J1200; J1630; J2060; J3230; Q0162

== ENCOUNTER 2024-02-07 09:31 | Emergency (ER) | payer MEDICARE, OTHER ==
[~2024-02-07] VITALS: Ht 165.1 cm; Wt 63.6 kg
[2024-02-07] MEDS: BACITRACIN 0.9 GM PACKET OINTMENT TP ONE (09:49)
[2024-02-07 09:58] VITALS: BP 119/83; PULSE 78; RESP 16; TEMP 98.3; O2SAT 98
== END 2024-02-07 13:50 ==
LOC: EMS 09:47
DX: S00.01XA Abrasion of scalp, initial encounter (principal); R45.1 Restlessness and agitation; F31.9 Bipolar disorder, unspecified; G10 Huntington's disease; G20.A1 Parkinson's disease without dyskinesia, without mention of fluctuations; W22.8XXA Striking against or struck by other objects, initial encounter; Y93.89 Activity, other specified; Y92.89 Other specified places as the place of occurrence of the external cause; Y99.8 Other external cause status
CPT/HCPCS: 70450; 99284

== ENCOUNTER 2024-02-08 01:08 | Emergency (ER) | payer MEDICARE, OTHER ==
[~2024-02-08] VITALS: Ht 154.9 cm; Wt 56.8 kg
[2024-02-08 01:18] VITALS: TEMP 98
[2024-02-08] MEDS: ONDANSETRON 4 MG TABLET PO ONE (02:47)
[2024-02-08] MEDS: ACETAMINOPHEN 325 MG TABLET PO ONE (02:47)
[2024-02-08 02:56] LABS: BASOPHILS % (AUTO) 0.8 % (0.0-2.0); EOSINOPHILS % (AUTO) 4.7 % (1.0-6.0); HEMATOCRIT 39.5 % (36-46); HEMOGLOBIN 12.8 g/dL (12.0-16.0); LYMPHOCYTES # (AUTO) 1.5 K/uL (1.0-4.8); MEAN CORPUSCULAR HEMOGLOBIN 27.5 pg (26.0-34.0); MEAN CORPUSCULAR HGB CONC 32.3 G/dL (31.0-37.0); MEAN CORPUSCULAR VOLUME 85 fL (80-100); MONOCYTES # (AUTO) 0.6 K/uL (0.1-1.0); MONOCYTES % (AUTO) 15.3 % (2.0-9.0); NEUTROPHILS # (AUTO) 1.7 K/uL (1.8-7.7); NEUTROPHILS % (AUTO) 42.2 % (40.0-70.0); PLATELET COUNT (AUTO) 314 K/uL (150-450); RED BLOOD CELL COUNT(AUTO) 4.65 MIL/uL (4.00-5.20); RED CELL DISTRIBUTION WIDTH 14.3 % (11.5-14.5); WHITE BLOOD COUNT (AUTO) 4.1 K/uL (4.5-11.0)
[2024-02-08 03:09] LABS: ANION GAP 0 mmol/L (8-16); CALCIUM, TOTAL 8.6 mg/dL (8.8-10.5); CARBON DIOXIDE 32 mmol/L (22-29); CHLORIDE 101 mmol/L (98-107); CREATININE 0.92 mg/dL (0.60-1.30); GLOMERULAR FILTR. RATE CALC > 60 mL/min (>60); GLUCOSE,RANDOM 90 mg/dL (70-110); POTASSIUM 4.2 mmol/L (3.5-5.1); SODIUM SERUM 133 mmol/L (136-145); UREA NITROGEN, BLOOD 17 mg/dL (7-18)
[2024-02-08 03:14] LABS: TROPONIN I-HIGH SENSITIVITY 13 ng/L (<51)
[2024-02-08 03:17] LABS: ALANINE AMINOTRANSFERASE 17 U/L (12-78); ALBUMIN 2.6 g/dL (3.4-5.0); ALKALINE PHOSPHATASE 86 U/L (46-116); ASPARTATE AMINOTRANSFERASE 23 U/L (15-37); BILIRUBIN,TOTAL 0.3 mg/dL (0.1-1.0); LIPASE 65 U/L (16-77); TOTAL PROTEIN, SERUM 6.4 g/dL (6.4-8.2)
[2024-02-08 06:07] VITALS: BP 107/63; PULSE 72; RESP 16; O2SAT 100
== END 2024-02-08 06:10 | disposition admitted as inpatient to this hospital (09) ==
LOC: EMS 01:08
DX: K59.00 Constipation, unspecified (principal); R11.2 Nausea with vomiting, unspecified; G10 Huntington's disease; F31.9 Bipolar disorder, unspecified; G20.A1 Parkinson's disease without dyskinesia, without mention of fluctuations; Z91.011 Allergy to milk products
CPT/HCPCS: 99284; 80048; 80076; 83690; 84484; 85025; 36415; 74018; Q0162

== ENCOUNTER 2024-03-02 02:49 | Emergency (ER) | payer MEDICARE, OTHER ==
[~2024-03-02] VITALS: Ht 167.6 cm; Wt 65.9 kg
[~2024-03-02 02:49] MED LIST changes: -QUET200T5 PO; +QUET300T5 PO; +ROPI0.2535 PO
[2024-03-02 04:03] VITALS: TEMP 98.1
[2024-03-02] MEDS: LORazepam 2 MG/ML VIAL IM ONE (04:47)
[2024-03-02 06:30] VITALS: BP 125/67; PULSE 80; RESP 18; O2SAT 98
[2024-03-02 07:25] LABS: COVID AG,FIA SOURCE NASAL SWAB
[2024-03-02 07:48] LABS: SARS-COV2 (COVID) ANTIGEN,FIA Negative (Negative)
[2024-03-02] MEDS ORDERED: LORazepam 2 MG TABLET PO PRN (08:30)
[2024-03-02] MEDS ORDERED: HALOPERIDOL 5 MG TABLET PO PRN (08:30)
[2024-03-02] MEDS ORDERED: ZOLPIDEM TARTRATE 10 MG TABLET PO PRN (08:30)
[2024-03-02 08:39] LABS: BASOPHILS % (AUTO) 0.6 % (0.0-2.0); EOSINOPHILS % (AUTO) 1.8 % (1.0-6.0); HEMATOCRIT 41.5 % (36-46); HEMOGLOBIN 13.4 g/dL (12.0-16.0); LYMPHOCYTES # (AUTO) 1.4 K/uL (1.0-4.8); LYMPHOCYTES % (AUTO) 22.6 % (22.0-44.0); MEAN CORPUSCULAR HEMOGLOBIN 27.7 pg (26.0-34.0); MEAN CORPUSCULAR HGB CONC 32.2 G/dL (31.0-37.0); MEAN CORPUSCULAR VOLUME 86 fL (80-100); MONOCYTES # (AUTO) 0.6 K/uL (0.1-1.0); NEUTROPHILS # (AUTO) 3.9 K/uL (1.8-7.7); PLATELET COUNT (AUTO) 350 K/uL (150-450); RED BLOOD CELL COUNT(AUTO) 4.82 MIL/uL (4.00-5.20); RED CELL DISTRIBUTION WIDTH 14.2 % (11.5-14.5)
[2024-03-02 08:48] LABS: ANION GAP 5 mmol/L (8-16); CALCIUM, TOTAL 9.6 mg/dL (8.8-10.5); CARBON DIOXIDE 31 mmol/L (22-29); CHLORIDE 107 mmol/L (98-107); CREATININE 0.97 mg/dL (0.60-1.30); GLOMERULAR FILTR. RATE CALC 60 mL/min (>60); GLUCOSE,RANDOM 105 mg/dL (70-110); POTASSIUM 4.2 mmol/L (3.5-5.1); SODIUM SERUM 143 mmol/L (136-145); UREA NITROGEN, BLOOD 17 mg/dL (7-18)
[2024-03-02 09:14] LABS: ALCOHOL, BLOOD (SERUM) < 3 mg/dL (0-10)
== END 2024-03-02 17:32 | disposition home or self-care (01) ==
LOC: EMS 02:49 → CANBEDREQ 16:40 → EMS 17:32
DX: F25.0 Schizoaffective disorder, bipolar type (principal); Z91.011 Allergy to milk products; Z20.822 Contact with and (suspected) exposure to COVID-19
CPT/HCPCS: 99285; 87426; 80048; 85025; 36415; 96372; G0480; J2060

== ENCOUNTER 2024-10-25 13:07 | Emergency (ER) | payer MEDICARE, OTHER ==
[~2024-10-25] VITALS: Ht 160 cm; Wt 47.7 kg
[2024-10-25 13:29] VITALS: TEMP 98.7
[2024-10-25 14:15] LABS: PLATELET COUNT (AUTO) 299 K/uL (150-450); RED BLOOD CELL COUNT(AUTO) 4.74 MIL/uL (4.00-5.20); RED CELL DISTRIBUTION WIDTH 14.0 % (11.5-14.5); WHITE BLOOD COUNT (AUTO) 3.8 K/uL (4.5-11.0)
[2024-10-25 14:23] LABS: COVID AG,FIA SOURCE NASAL SWAB
[2024-10-25 14:24] LABS: CALCIUM, TOTAL 9.5 mg/dL (8.8-10.5); CREATININE 0.93 mg/dL (0.60-1.30); GLOMERULAR FILTR. RATE CALC > 60 mL/min (>60); GLUCOSE,RANDOM 102 mg/dL (70-110); SODIUM SERUM 143 mmol/L (136-145); UREA NITROGEN, BLOOD 13 mg/dL (7-18)
[2024-10-25] MEDS ORDERED: BACL10TA PO (14:43)
[2024-10-25] MEDS ORDERED: VALB40CA2 PO (14:43)
[2024-10-25] MEDS ORDERED: RISP2TAB45 PO (14:43)
[2024-10-25] MEDS ORDERED: LORA1TAB25 PO (14:43)
[2024-10-25] MEDS ORDERED: QUET400T13 PO (14:43)
[2024-10-25] MEDS: LORazepam 2 MG/ML VIAL IM ONE (14:49)
[2024-10-25 14:58] LABS: SARS-COV2 (COVID) ANTIGEN,FIA Negative (Negative)
[2024-10-25] MEDS ORDERED: ZOLPIDEM TARTRATE 10 MG TABLET PO PRN (17:30)
[2024-10-26 18:52] VITALS: BP 135/93; PULSE 104; RESP 17; O2SAT 98
== END 2024-10-26 20:33 | disposition home or self-care (01) ==
LOC: EMS 13:07
DX: F20.9 Schizophrenia, unspecified (principal); G10 Huntington's disease; F31.9 Bipolar disorder, unspecified; F41.9 Anxiety disorder, unspecified; G20.A1 Parkinson's disease without dyskinesia, without mention of fluctuations; Z79.899 Other long term (current) drug therapy; Z91.011 Allergy to milk products; Z20.822 Contact with and (suspected) exposure to COVID-19
CPT/HCPCS: 99285; 87426; 80048; 85025; 96372; G0480; J3230; J1200; J1630; J2060